=== PATIENT | male | born 1970 ===

== ENCOUNTER → 2018-09-16 | Outpatient (CLI) | payer BC ==
--- NOTE | 2018-09-16 22:35 | CONS ---
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 The patient has a quite difficult schedule. He works a 24 hour shift every 3 days. On the days that he is off, he goes to bed around 10 p.m., wakes at 5:30 am in the morning. 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 In general, he snores and he has been told to stop breathing and wakes up fatigued and sometimes he wakes himself up because of snoring and apneas. Total of 10-15 pounds weight gain over the past 10 years has been noted. No nocturia. No grinding of the teeth. No restlessness in his lower extremity. His father has obstructive sleep apnea. His current [place] score is 7. No sleep paralysis, hallucinations or cataplexy. PAST MEDICAL HISTORY: History of hypertension, depression and prostate cancer and erectile dysfunction. SURGICAL HISTORY: Includes prostatectomy for prostate cancer. This was done robotically. DRUG ALLERGIES: Negative. OUTPATIENT MEDICATION: Includes sildenafil 20 mg p.o. daily, Cymbalta 40 mg p.o. daily and losartan 50 mg p.o. daily. FAMILY HISTORY: His father had prostate cancer. He also has obstructive sleep apnea. He is currently on CPAP therapy. REVIEW OF SYSTEMS: Fourteen-point review of system was done. Review of systems positive for excessive fatigue and sleepiness and snoring and witnessed apneas. No history of insomnia. No choking throughout the night. No grinding. No nocturia. No sleepwalking or sleep talking. No dryness in the mouth. The patient is a mouth breather only at nighttime and during the day he breathes through his nose. No palpitation. No heartburn. No sleepwalking or sleep talking. No restlessness in lower extremities. He has history of anxiety and depression. Currently is on Cymbalta. He does not worry about his sleep. He has no sleep paralysis, hallucinations or cataplexy. No history of any motor vehicle accident because of feeling drowsy or sleepy. He is tired. [place] Score is at 7. PHYSICAL EXAMINATION: BP is 118/73, pulse is 100. Respirations 16, temperature 98.1. Saturation 98% on room air. Height is 5 feet, 10 inches, weight is 223. [place] Score is at 7. BMI is 31.5. Neck size is 17-3/4 of an inch. GENERAL APPEARANCE: Calm, comfortable. HEENT atraumatic, normocephalic. NECK: Supple. No JVD. No goiter. No neck masses. Mallampati class III. LUNGS: Clear to auscultation. HEART: Sounds regular rate and rhythm. Normal S1, S2. No S3. No murmurs. ABDOMEN: Soft, nontender. No organomegaly. EXTREMITIES: No edema. No cyanosis or clubbing. NEUROLOGIC: Alert and oriented times three. No focal neurological deficits. PSYCHIATRIC: Negative for anxiety or depression. SKIN is negative for any wounds or ulceration. IMPRESSION: 1. There is hypersomnia/fatigue, [place] score at 7. Currently under investigation. Rule out obstructive sleep apnea based on history of snoring and witnessed apneas. 2. [employer] with 24 hour shift every 3 days. 3. History of prostate cancer with previous prostatectomy. 4. Erectile dysfunction. On Viagra. 5. Hypertension. 6. History of depression, currently on Cymbalta. PLAN: 1. Encourage weight loss. 2. Implement good sleep hygiene measures. 3. Proceed with a home sleep study to investigate this patient for sleep apnea and treat accordingly. MMODL / IJN: [id number] /
== END ==
LOC: SLEEP 13:50
PROVIDERS: ATTEND Internal Medicine Critical Care Medicine
DX: G47.10 Hypersomnia, unspecified (principal); N52.9 Male erectile dysfunction, unspecified; I10 Essential (primary) hypertension; F32.9 Major depressive disorder, single episode, unspecified; R53.83 Other fatigue; Z90.79 Acquired absence of other genital organ(s); Z85.46 Personal history of malignant neoplasm of prostate; Z79.899 Other long term (current) drug therapy
CPT/HCPCS: 99211

== ENCOUNTER → 2018-09-22 | Day surgery (SDC) | payer BC ==
--- NOTE | 2018-09-21 18:23 | P.GSHP ---
History of Present Illness H&P Date: 09/22/18 CHIEF COMPLAINT: Colon screen HISTORY OF PRESENT ILLNESS: The patient is a 47-year-old male who presents for colon screen. Lower endoscopy was offered for further evaluation and management. PAST MEDICAL HISTORY: Please see list. PAST SURGICAL HISTORY: Please see list. MEDICATIONS: Please see list. ALLERGIES: Please see list. SOCIAL HISTORY: No illicit drug use FAMILY HISTORY: No reports of Crohn disease or ulcerative colitis. REVIEW OF ORGAN SYSTEMS: CONSTITUTIONAL: No reports of fevers or chills. PHYSICAL EXAM: VITAL SIGNS: Stable GENERAL: Well-developed pleasant in no acute distress. HEENT: No scleral icterus. Extraocular movements grossly intact. Moist buccal mucosa. NECK: Supple without lymphadenopathy. CHEST: Unlabored respirations. Equal bilateral excursions. CARDIOVASCULAR: Regular rate and rhythm. Distal 2+ pulses. ABDOMEN: Soft, nontender, nondistended. MUSCULOSKELETAL: No clubbing, cyanosis, or edema. ASSESSMENT: 1. Colon screen. PLAN: 1. Recommend proceeding with a lower endoscopy Past Medical History Past Medical History: Cancer, Hypertension Additional Past Medical History / Comment(s): PROSTATE CA-2016 History of Any Multi-Drug Resistant Organisms: None Reported Past Surgical History: Prostate Surgery Additional Past Surgical History / Comment(s): PROSTATECTOMY. COLONOSCOPY Past Anesthesia/Blood Transfusion Reactions: No Reported Reaction Smoking Status: Former smoker - Past Family History Father Family Medical History: Cancer
[~2018-09-22] MED LIST: LACTATED RINGERS 1,000 ML IV ONE; LIDOCAINE 1% 20 ML VIAL (10MG/ML) FOR IV START INTRADERMA ONE; PROPOFOL 10 MG/ML 20 ML VIAL IV ONE
[2018-09-22 11:09] VITALS: TEMP 97.2
--- NOTE | 2018-09-22 11:50 | P.PCN ---
Date of Procedure: 09/22/18 Description of Procedure: PREOPERATIVE DIAGNOSIS: Family history colon cancer Colonoscopy screening. POSTOPERATIVE DIAGNOSIS: Family history colon cancer Colonoscopy screening. Diverticulosis, scattered. External hemorrhoids Internal hemorrhoids OPERATION: Colonoscopy to the ileocecal valve and appendiceal orifice. SURGEON: Katherine Bhagat MD. ANESTHESIA: MAC. INDICATIONS: The patient is a 47-year-old male who presents for colonoscopy screening, first screening. He has history of colon cancer in his family. Benefits and risks were described and informed consent was obtained. DESCRIPTION OF PROCEDURE: The patient had undergone Suprep. He had been brought into the operating room and laid in the left lateral decubitus position. After adequate intravenous sedation, the rectum was examined with 2% lidocaine jelly. External hemorrhoids were encountered. The rectal tone was within normal limits. No lesions were palpated in the rectal vault. An Olympus colonoscope was advanced until the ileocecal valve and appendiceal orifice were clearly viewed. The prep was good. The scope was removed with visualization of each mucosal fold. Scattered diverticulosis was encountered. No colonic polyps were found. No evidence of focal colitis was found. Retroflexion of the scope demonstrated grade 1 internal hemorrhoids without active bleeding or inflammation. The colon was desufflated. The patient had tolerated the procedure well. Withdrawal time was over 6 minutes. FINDINGS: Aronchick preparation quality scale 2 (1-5) Internal hemorrhoids, grade 1 External prolapsed hemorrhoids, grade 1 No arteriovenous malformations. No adenomatous polyps. No focal colitis. Scattered diverticulosis RECOMMENDATIONS: Lower endoscopy down to 5 years, 2023 with family history of colon cancer. Plan - Discharge Summary Discharge Rx Participant: Yes New Discharge Prescriptions: No Action Sildenafil Citrate [Sildenafil] 1 tab PO DAILY DULoxetine HCL [Cymbalta] 1 tab PO DAILY Losartan/Hydrochlorothiazide [Losartan-Hctz 50-12.5 mg Tab] 1 tab PO DAILY Discharge Medication List DULoxetine HCL [Cymbalta] 1 tab PO DAILY 09/22/18 [History] Losartan/Hydrochlorothiazide [Losartan-Hctz 50-12.5 mg Tab] 1 tab PO DAILY 09/22/18 [History] Sildenafil Citrate [Sildenafil] 1 tab PO DAILY 09/22/18 [History] Follow up Appointment(s)/Referral(s): Katherine Bhagat MD [STAFF PHYSICIAN] - As Needed Patient Instructions/Handouts: Diverticulosis (DC), Diverticulosis Diet (GEN) Activity/Diet/Wound Care/Special Instructions: Repeat colonoscopy in 5 years, 2023 Discharge Disposition: HOME SELF-CARE
[2018-09-22 11:52] VITALS: RESP 12
[2018-09-22 12:51] VITALS: BP 107/78; PULSE 70
== END | disposition home or self-care (01) ==
LOC: ORWHC2ENDO 10:13
PROVIDERS: ATTEND Surgery Plastic and Reconstructive Surgery
DX: Z12.11 Encounter for screening for malignant neoplasm of colon (principal); Z80.0 Family history of malignant neoplasm of digestive organs; K64.4 Residual hemorrhoidal skin tags; K64.8 Other hemorrhoids; Z85.46 Personal history of malignant neoplasm of prostate; K57.30 Diverticulosis of large intestine without perforation or abscess without bleeding; Z79.899 Other long term (current) drug therapy; Z87.891 Personal history of nicotine dependence
CPT/HCPCS: J2704; G0105

== ENCOUNTER → 2019-02-10 | Outpatient (CLI) | payer BC ==
--- NOTE | 2019-02-10 19:37 | PN ---
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 The patient was diagnosed having KUSUM and his baseline AHI was moderately severe with an AHI of 22, worse in the supine body position. He was given APAP with a minimum pressure of 5, maximum pressure of 15. On today's evaluation, he feels great. He is reporting marked improvement in sleep quality. Note that his sleep is disrupted. 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 Based on the compliance data, the patient has been averaging around 8 hours of CPAP use per night and CPAP use for more than 4 hours is 28/30. His leak is at 16 L/minutes. His AHI is down to 0.4. Treatment has been extremely successful. His weight has been up by around 7-8 pounds since last evaluation. He feels great. No major hypersomnia or sleepiness during the day. No episodes of falling asleep while driving. REVIEW OF SYSTEMS: Fourteen-point review of system was done. Positive findings are mentioned in history of present illness. No shortness of breath. No chest pain. No altered mentation. No headaches during the day. No major hypersomnia or sleepiness. His current [place] score is down to 1. PHYSICAL EXAMINATION: General appearance: Calm and comfortable. HEENT: Head is atraumatic, normocephalic. NECK: Supple. There is no JVD. No goiter or neck mass. Mallampati class IV. LUNGS: Clear to auscultation. HEART: Heart sounds are regular rate and rhythm. Normal S1, S2. No S3, S4. No murmurs. ABDOMEN: Soft, nontender. No organomegaly. EXTREMITIES: No edema. No cyanosis or clubbing. NEUROLOGIC: Awake and alert. There are no focal neurological deficits. PSYCHIATRIC: Negative for anxiety or depression. IMPRESSION: 1. Symptomatic obstructive sleep apnea AHI of 22, moderately severe. Worse in the supine body position. The patient undergoing effective unsuccessful APAP treatment. 2. Chronic hypersomnia improved. 3. Obesity with recent weight gain, body weight up to 231. 4. Hypertension. 5. Depression. 6. History of prostate cancer. PLAN: Continue APAP therapy at same level of pressure. The patient's treatment is successful, AHI is down to 0.4 and the patient is benefitting from the treatment. Note that the average P95 percentile of the APAP pressure is at 11.4. Optimize sleep hygiene measures. We will continue to follow. See me back in a year's time in followup. PREMA / EMILY: [id number] /
== END ==
LOC: SLEEP 15:06
PROVIDERS: ATTEND Internal Medicine Critical Care Medicine
DX: G47.33 Obstructive sleep apnea (adult) (pediatric) (principal); E66.9 Obesity, unspecified; I10 Essential (primary) hypertension; F32.9 Major depressive disorder, single episode, unspecified; Z85.46 Personal history of malignant neoplasm of prostate; Z99.89 Dependence on other enabling machines and devices

== ENCOUNTER → 2019-05-26 | Outpatient (CLI) | payer BC | END | disposition home or self-care (01) | LOC: CPPFTMAIN 10:17 | PROVIDERS: ATTEND Family Medicine | DX: Z77.028 Contact with and (suspected) exposure to other hazardous aromatic compounds (principal) | CPT/HCPCS: 94060; 94726; 94729 ==

== ENCOUNTER → 2020-08-23 | Outpatient (CLI) | payer BC ==
--- NOTE | 2020-08-23 16:13 | PN ---
PROGRESS NOTE This 49-year-old is coming in for an annual check regarding obstructive sleep apnea. His AHI is 22 at baseline. The patient is utilizing an APAP unit, pressure minimum of 5, maximum of 15 cm of water. He is using a DreamWear [id number] medium-sized nasal mask. Doing well. No specific complaints. [place] score is 2. 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 Nevertheless, he is able to carry his CPAP machine with him and he has been using it on a regular basis. Based on the compliance data, the patient utilizes his machine every night without any interruption, averaging around 8 hours per night. His CPAP use for more than 4 hours is above 95%. Leak is on the order of 10 L/minute and his AHI is down to 0.9 while on treatment. His weight is stable. No new-onset medical problems or comorbidities. REVIEW OF SYSTEMS: Fourteen-point review of systems was done. Positive findings are all mentioned in the history of present illness. [place] score is at 2. PHYSICAL EXAMINATION: VITAL SIGNS: BP is 165/85, pulse 78, respirations 16, temperature 98.4, saturation 96% on room air. Height is 5 feet 11 inches, weight is 240, BMI is 33.4. [place] score is 2. GENERAL APPEARANCE: Calm, comfortable. HEAD: Atraumatic, normocephalic. NECK: Supple. No JVD. No goiter or neck masses. Mallampati class IV. LUNGS: Clear to auscultation. HEART: Heart sounds are regular rate and rhythm. Normal S1, S2. No S3, S4. No murmurs. ABDOMEN: Soft, nontender. EXTREMITIES: No edema. No cyanosis or clubbing. NEUROLOGIC: Awake and alert. There is no focal neurological deficit. IMPRESSION: 1. Obstructive sleep apnea, moderate to severe. AHI of 22. Currently being treated with an APAP and the patient is clinically well treated and asymptomatic. 2. Obesity with a BMI of 33.4. 3. Hypersomnia, recovered. [place] score is down to 2. 4. Hypertension, maintained on losartan hydrochlorothiazide. 5. ED. PLAN: 1. Continue the same pressure setting. 2. Try the patient on an AirFit N30I as an alternative mask to his DreamWear under-the- nose. 3. Encourage weight loss. 4. Compliance data was checked. 5. Treatment is successful. The patient is compliant. See me back in a few years' time in followup, earlier if needed. MMUNAL / IJN: [id number] /
== END ==
LOC: SLEEP 14:30
PROVIDERS: ATTEND Internal Medicine Critical Care Medicine
DX: G47.33 Obstructive sleep apnea (adult) (pediatric) (principal); E66.9 Obesity, unspecified; Z68.33 Body mass index [BMI] 33.0-33.9, adult; I10 Essential (primary) hypertension; Z88.7 Allergy status to serum and vaccine; Z87.891 Personal history of nicotine dependence

== ENCOUNTER 2021-10-14 05:09 | Emergency (ER) | payer BC ==
[2021-10-14 05:49] VITALS: BP 142/88; PULSE 108; RESP 16; TEMP 98.6
--- NOTE | 2021-10-14 06:23 | ED ---
Psych HPI - General Chief Complaint: Psychiatric Symptoms Stated Complaint: Mental Health Time Seen by Provider: 10/14/21 05:49 Source: patient, EMS Mode of arrival: EMS - History of Present Illness Initial Comments: This patient is a 50-year-old man with history of being diagnosed as bipolar. He believes that he is becoming manic. The patient is here at the request of his partner, who was concerned about his well-being. Patient notes that he is sleeping less then usual. He is talking more than usual. Patient denies suicidal or homicidal ideation. MD Complaint: other Onset/Timin -: week(s) Associated Psychiatric Symptoms: racing thoughts History of same: Yes Quality: getting worse Improves With: none Worsens With: none Context: significant life stressor - Related Data Home Medications Medication Instructions Recorded Confirmed DULoxetine HCL [Cymbalta] 1 tab PO DAILY 09/22/18 09/22/18 Losartan/Hydrochlorothiazide 1 tab PO DAILY 09/22/18 09/22/18 [Losartan-Hctz 50-12.5 mg Tab] Sildenafil Citrate [Sildenafil] 1 tab PO DAILY 09/22/18 09/22/18 Allergies Allergy/AdvReac Type Severity Reaction Status Date / Time thimerosal AdvReac Unknown Verified 09/22/18 10:55 Review of Systems ROS Statement: Those systems with pertinent positive or pertinent negative responses have been documented in the HPI. ROS Other: All systems not noted in ROS Statement are negative. Constitutional: Denies: fever Eyes: Denies: vision change Respiratory: Denies: cough, dyspnea Cardiovascular: Denies: chest pain, palpitations, syncope Gastrointestinal: Denies: abdominal pain, vomiting, diarrhea Genitourinary: Denies: dysuria, hematuria Musculoskeletal: Denies: back pain Neurological: Denies: headache, weakness, numbness Psychiatric: Reports: as per HPI. Denies: auditory hallucinations, visual hallucinations, homicidal thoughts, suicidal thoughts General Exam Limitations: no limitations General appearance: alert, in no apparent distress Head exam: Present: atraumatic, normocephalic Eye exam: Present: normal appearance. Absent: scleral icterus, conjunctival injection Respiratory exam: Present: normal lung sounds bilaterally. Absent: respiratory distress, wheezes, rales, rhonchi, stridor Cardiovascular Exam: Present: regular rate, normal rhythm, normal heart sounds. Absent: systolic murmur, diastolic murmur, rubs, gallop GI/Abdominal exam: Present: soft. Absent: distended, tenderness, guarding, rebound Extremities exam: Present: normal capillary refill Neurological exam: Present: alert, normal gait Psychiatric exam: Present: manic. Absent: depressed, anxious, flat affect, homicidal ideation, suicidal ideation Skin exam: Present: warm, dry, intact, normal color. 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 Disposition Clinical Impression: Fanny Disposition: Left Against Medical Advice Condition: Undetermined Is patient prescribed a controlled substance at d/c from ED?: No Referrals: None,Stated [REFERRING] - 1-2 days
== END 2021-10-14 07:10 | disposition left against medical advice (07) ==
LOC: EC 05:09
DX: F30.9 Manic episode, unspecified (principal)
CPT/HCPCS: 82075; 99284